=== PATIENT | female | born 1945 | race Caucasian/White ===

== ENCOUNTER 2017-08-30 16:21 | Inpatient (IN) | payer MEDICARE, MEDICAID ==
[~2017-08-30] VITALS: Ht 152.4 cm; Wt 66.3 kg
[2017-08-30 17:44] VITALS: BP 102/66
[2017-08-30 19:49] VITALS: BP 130/73
[2017-08-30] MEDS ORDERED: ONDANSETRON HCL 4 MG/2 ML VIAL IVP PRN (22:15)
[2017-08-30] MEDS ORDERED: ACETAMINOPHEN 325 MG TABLET PO PRN (22:15)
[2017-08-30] MEDS ORDERED: MAGNESIUM HYDROXIDE SUSPENSION 30 ML UDCUP PO PRN (22:15)
[2017-08-30] MEDS ORDERED: ZOLPIDEM TARTRATE 5 MG TABLET PO PRN (22:15)
[2017-08-30 23:25] VITALS: BP 129/79
[2017-08-30 23:26] LABS: BASOPHILS # (AUTO) 0.03 K/uL (0.00-0.20); BASOPHILS % (AUTO) 0.4 % (0.0-2.0); EOSINOPHILS # (AUTO) 0.18 K/uL (0.00-0.70); EOSINOPHILS % (AUTO) 2.11 % (1.0-6.0); HEMATOCRIT 39.6 % (36-46); HEMOGLOBIN 13.3 g/dL (12.0-16.0); LYMPHOCYTES # (AUTO) 2.6 K/uL (1.0-4.8); LYMPHOCYTES % (AUTO) 29.4 % (22.0-44.0); MEAN CORPUSCULAR HEMOGLOBIN 32.5 pg (26.0-34.0); MEAN CORPUSCULAR HGB CONC 33.6 G/dL (31.0-37.0); MEAN CORPUSCULAR VOLUME 97 fL (80-100); MONOCYTES # (AUTO) 0.6 K/uL (0.1-1.0); MONOCYTES % (AUTO) 6.7 % (2.0-9.0); NEUTROPHILS # (AUTO) 5.4 K/uL (1.8-7.7); NEUTROPHILS % (AUTO) 61.4 % (40.0-70.0); PLATELET COUNT (AUTO) 326 K/uL (150-450); RED CELL DISTRIBUTION WIDTH 13.5 % (11.5-14.5); WHITE BLOOD COUNT (AUTO) 8.8 K/uL (4.5-11.0)
[2017-08-30 23:50] LABS: ALANINE AMINOTRANSFERASE 21 U/L (12-78); ALBUMIN 3.3 g/dL (3.4-5.0); ANION GAP 5 mmol/L (8-16); ASPARTATE AMINOTRANSFERASE 14 U/L (15-37); BILIRUBIN,TOTAL 0.2 mg/dL (0.1-1.0); CARBON DIOXIDE 28 mmol/L (22-29); CHLORIDE 107 mmol/L (98-107); CHOL/HDL RATIO 3.4 (3.9-5.7); CREATININE 0.78 mg/dL (0.60-1.30); GLOMERULAR FILTR. RATE CALC > 60 mL/min (>60); POTASSIUM 3.9 mmol/L (3.5-5.1); SODIUM SERUM 140 mmol/L (136-145); THYROID STIMULATING HORMONE 1.17 uIU/mL (0.36-3.74); TOTAL PROTEIN, SERUM 6.6 g/dL (6.4-8.2); UREA NITROGEN, BLOOD 17 mg/dL (7-18)
[2017-08-31] MEDS: HEPARIN SODIUM,PORCINE 5,000 UNITS/ML VIAL SQ SCH ×4 (04:11→23:45)
[2017-08-31 04:15] VITALS: BP 128/75
[2017-08-31 07:34] VITALS: BP 126/57
[2017-08-31] MEDS: IPRATROPIUM BROMIDE 0.5 MG/2.5 ML NEB SOLUTION NEB SCH ×6 (08:07→20:41)
[2017-08-31] MEDS: DOCUSATE SODIUM 100 MG CAPSULE PO SCH ×2 (08:12→20:22)
[2017-08-31] MEDS ORDERED: DEXTROSE 5%-0.9% SODIUM CHL 1,000 ML IV SCH (10:30)
[2017-08-31 11:01] VITALS: BP 135/76
[2017-08-31] MEDS: RisperiDONE 0.5 MG TABLET PO SCH (13:24)
[2017-08-31] MEDS: LISINOPRIL 10 MG TABLET PO SCH (13:25)
[2017-08-31] MEDS: CefTRIAXone 1 GM/DEXTROSE 50 ML IV SCH (13:25)
[2017-08-31 15:29] VITALS: BP 133/69
[2017-08-31] MEDS: RASAGILINE MESYLATE 1 MG TABLET PO SCH (17:08)
[2017-08-31 19:29] VITALS: BP 148/83
[2017-08-31] MEDS: LevETIRAcetam 500 MG TABLET PO SCH (20:22)
[2017-08-31] MEDS: DEXTROSE 5%-0.9% SODIUM CHL 1,000 ML IV SCH (22:35)
[2017-08-31 23:21] VITALS: BP 142/74
[2017-09-01] MEDS: IPRATROPIUM BROMIDE 0.5 MG/2.5 ML NEB SOLUTION NEB SCH ×4 (02:16→21:10)
[2017-09-01 03:16] VITALS: BP 126/70
[2017-09-01 07:11] VITALS: BP 135/71
[2017-09-01] MEDS: LevETIRAcetam 500 MG TABLET PO SCH ×2 (09:11→20:37)
[2017-09-01] MEDS: CITALOPRAM HYDROBROMIDE 10 MG TABLET PO SCH (09:11)
[2017-09-01] MEDS: DONEPEZIL HCL 10 MG TABLET PO SCH (09:11)
[2017-09-01] MEDS: DOCUSATE SODIUM 100 MG CAPSULE PO SCH ×2 (09:11→20:39)
[2017-09-01] MEDS: RisperiDONE 0.5 MG TABLET PO SCH (09:11)
[2017-09-01] MEDS: AmLODIPine BESYLATE 5 MG TABLET PO SCH (09:11)
[2017-09-01] MEDS: HEPARIN SODIUM,PORCINE 5,000 UNITS/ML VIAL SQ SCH ×3 (09:11→23:22)
[2017-09-01] MEDS: LISINOPRIL 10 MG TABLET PO SCH (09:11)
[2017-09-01] MEDS: RASAGILINE MESYLATE 1 MG TABLET PO SCH (09:11)
[2017-09-01] MEDS: CefTRIAXone 1 GM/DEXTROSE 50 ML IV SCH (09:12)
[2017-09-01 11:10] VITALS: BP 145/69
[2017-09-01] MEDS: DEXTROSE 5%-0.9% SODIUM CHL 1,000 ML IV SCH (14:32)
[2017-09-01 16:10] VITALS: BP 139/88
[2017-09-01 19:14] VITALS: BP 140/73
[2017-09-01] MEDS ORDERED: 0.9% SODIUM CHLORIDE 5 ML NEB SOLUTION NEB ONE (20:23)
[2017-09-01 23:16] VITALS: BP 140/93
[2017-09-02] MEDS: IPRATROPIUM BROMIDE 0.5 MG/2.5 ML NEB SOLUTION NEB SCH ×4 (02:00→19:50)
[2017-09-02] MEDS ORDERED: 0.9% SODIUM CHLORIDE 5 ML NEB SOLUTION NEB ONE (03:34)
[2017-09-02 04:00] VITALS: BP 149/93
[2017-09-02] MEDS: DEXTROSE 5%-0.9% SODIUM CHL 1,000 ML IV SCH ×2 (06:15→16:54)
[2017-09-02 06:43] LABS: BASOPHILS % (AUTO) 0.5 % (0.0-2.0); EOSINOPHILS % (AUTO) 1.3 % (1.0-6.0); HEMATOCRIT 40.8 % (36-46); HEMOGLOBIN 14.1 g/dL (12.0-16.0); LYMPHOCYTES # (AUTO) 2.5 K/uL (1.0-4.8); LYMPHOCYTES % (AUTO) 30.3 % (22.0-44.0); MEAN CORPUSCULAR HEMOGLOBIN 33.6 pg (26.0-34.0); MEAN CORPUSCULAR HGB CONC 34.6 G/dL (31.0-37.0); MEAN CORPUSCULAR VOLUME 97 fL (80-100); MONOCYTES # (AUTO) 0.4 K/uL (0.1-1.0); MONOCYTES % (AUTO) 4.5 % (2.0-9.0); NEUTROPHILS # (AUTO) 5.1 K/uL (1.8-7.7); NEUTROPHILS % (AUTO) 63.4 % (40.0-70.0); PLATELET COUNT (AUTO) 316 K/uL (150-450); RED CELL DISTRIBUTION WIDTH 13.1 % (11.5-14.5); WHITE BLOOD COUNT (AUTO) 8.1 K/uL (4.5-11.0)
[2017-09-02 07:04] LABS: ANION GAP 9 mmol/L (8-16); CALCIUM, TOTAL 8.9 mg/dL (8.8-10.5); CARBON DIOXIDE 26 mmol/L (22-29); CHLORIDE 106 mmol/L (98-107); CREATININE 0.67 mg/dL (0.60-1.30); GLOMERULAR FILTR. RATE CALC > 60 mL/min (>60); POTASSIUM 3.8 mmol/L (3.5-5.1); SODIUM SERUM 141 mmol/L (136-145); UREA NITROGEN, BLOOD 7 mg/dL (7-18)
[2017-09-02 07:20] VITALS: BP 130/70
[2017-09-02] MEDS: HEPARIN SODIUM,PORCINE 5,000 UNITS/ML VIAL SQ SCH ×3 (08:28→23:49)
[2017-09-02] MEDS: CITALOPRAM HYDROBROMIDE 10 MG TABLET PO SCH (08:28)
[2017-09-02] MEDS: LevETIRAcetam 500 MG TABLET PO SCH ×2 (08:28→20:19)
[2017-09-02] MEDS: LISINOPRIL 10 MG TABLET PO SCH (08:29)
[2017-09-02] MEDS: DONEPEZIL HCL 10 MG TABLET PO SCH (08:29)
[2017-09-02] MEDS: RisperiDONE 0.5 MG TABLET PO SCH (08:29)
[2017-09-02] MEDS: DOCUSATE SODIUM 100 MG CAPSULE PO SCH ×2 (08:29→20:19)
[2017-09-02] MEDS: AmLODIPine BESYLATE 5 MG TABLET PO SCH (08:29)
[2017-09-02] MEDS: RASAGILINE MESYLATE 1 MG TABLET PO SCH (08:29)
[2017-09-02] MEDS: CefTRIAXone 1 GM/DEXTROSE 50 ML IV SCH (08:38)
[2017-09-02 11:29] VITALS: BP 134/71
[2017-09-02 15:44] VITALS: BP 142/69
[2017-09-02 19:24] VITALS: BP 155/98
[2017-09-03] VITALS (7 sets, daily range): BP systolic 130–154; BP diastolic 66–98
[2017-09-03] MEDS: IPRATROPIUM BROMIDE 0.5 MG/2.5 ML NEB SOLUTION NEB SCH ×4 (02:02→19:33)
[2017-09-03] MEDS: DEXTROSE 5%-0.9% SODIUM CHL 1,000 ML IV SCH ×2 (07:35→19:56)
[2017-09-03] MEDS: DONEPEZIL HCL 10 MG TABLET PO SCH (08:17)
[2017-09-03] MEDS: LISINOPRIL 10 MG TABLET PO SCH (08:17)
[2017-09-03] MEDS: AmLODIPine BESYLATE 5 MG TABLET PO SCH (08:17)
[2017-09-03] MEDS: HEPARIN SODIUM,PORCINE 5,000 UNITS/ML VIAL SQ SCH ×2 (08:17→16:24)
[2017-09-03] MEDS: RisperiDONE 0.5 MG TABLET PO SCH (08:17)
[2017-09-03] MEDS: CITALOPRAM HYDROBROMIDE 10 MG TABLET PO SCH (08:18)
[2017-09-03] MEDS: DOCUSATE SODIUM 100 MG CAPSULE PO SCH ×2 (08:19→20:46)
[2017-09-03] MEDS: LevETIRAcetam 500 MG TABLET PO SCH ×2 (08:19→20:46)
[2017-09-03] MEDS: RASAGILINE MESYLATE 1 MG TABLET PO SCH (08:20)
[2017-09-03] MEDS: CefTRIAXone 1 GM/DEXTROSE 50 ML IV SCH (10:03)
[2017-09-04] MEDS: HEPARIN SODIUM,PORCINE 5,000 UNITS/ML VIAL SQ SCH ×2 (00:15→08:11)
[2017-09-04] MEDS: IPRATROPIUM BROMIDE 0.5 MG/2.5 ML NEB SOLUTION NEB SCH ×2 (01:59→08:07)
[2017-09-04 04:00] VITALS: BP 125/86
[2017-09-04 05:51] LABS: BASOPHILS # (AUTO) 0.04 K/uL (0.00-0.20); BASOPHILS % (AUTO) 0.5 % (0.0-2.0); EOSINOPHILS # (AUTO) 0.13 K/uL (0.00-0.70); EOSINOPHILS % (AUTO) 1.51 % (1.0-6.0); HEMATOCRIT 39.7 % (36-46); HEMOGLOBIN 13.3 g/dL (12.0-16.0); LYMPHOCYTES # (AUTO) 2.4 K/uL (1.0-4.8); LYMPHOCYTES % (AUTO) 27.7 % (22.0-44.0); MEAN CORPUSCULAR HEMOGLOBIN 32.9 pg (26.0-34.0); MEAN CORPUSCULAR HGB CONC 33.6 G/dL (31.0-37.0); MEAN CORPUSCULAR VOLUME 98 fL (80-100); MONOCYTES # (AUTO) 0.5 K/uL (0.1-1.0); MONOCYTES % (AUTO) 5.8 % (2.0-9.0); NEUTROPHILS # (AUTO) 5.6 K/uL (1.8-7.7); NEUTROPHILS % (AUTO) 64.5 % (40.0-70.0); PLATELET COUNT (AUTO) 284 K/uL (150-450); RED BLOOD CELL COUNT(AUTO) 4.05 MIL/uL (4.00-5.20); RED CELL DISTRIBUTION WIDTH 13.2 % (11.5-14.5); WHITE BLOOD COUNT (AUTO) 8.6 K/uL (4.5-11.0)
[2017-09-04 06:22] LABS: ANION GAP 7 mmol/L (8-16); CALCIUM, TOTAL 8.7 mg/dL (8.8-10.5); CARBON DIOXIDE 28 mmol/L (22-29); CHLORIDE 108 mmol/L (98-107); CREATININE 0.63 mg/dL (0.60-1.30); GLOMERULAR FILTR. RATE CALC > 60 mL/min (>60); POTASSIUM 3.7 mmol/L (3.5-5.1); SODIUM SERUM 143 mmol/L (136-145); UREA NITROGEN, BLOOD 7 mg/dL (7-18)
[2017-09-04 07:03] VITALS: BP 155/88
[2017-09-04] MEDS: DONEPEZIL HCL 10 MG TABLET PO SCH (08:10)
[2017-09-04] MEDS: RASAGILINE MESYLATE 1 MG TABLET PO SCH (08:10)
[2017-09-04] MEDS: DOCUSATE SODIUM 100 MG CAPSULE PO SCH (08:10)
[2017-09-04] MEDS: LevETIRAcetam 500 MG TABLET PO SCH (08:10)
[2017-09-04] MEDS: LISINOPRIL 10 MG TABLET PO SCH (08:10)
[2017-09-04] MEDS: CITALOPRAM HYDROBROMIDE 10 MG TABLET PO SCH (08:10)
[2017-09-04] MEDS: RisperiDONE 0.5 MG TABLET PO SCH (08:11)
[2017-09-04] MEDS: AmLODIPine BESYLATE 5 MG TABLET PO SCH (08:11)
[2017-09-04] MEDS: DEXTROSE 5%-0.9% SODIUM CHL 1,000 ML IV SCH (08:21)
[2017-09-04] MEDS: CefTRIAXone 1 GM/DEXTROSE 50 ML IV SCH (09:57)
[2017-09-04] MEDS ORDERED: CITA10TA68 PO (10:34)
[2017-09-04] MEDS ORDERED: AMLO-511 PO (10:34)
[2017-09-04] MEDS ORDERED: DSS100 PO (10:34)
[2017-09-04] MEDS ORDERED: DONE10TA8 PO (10:35)
[2017-09-04] MEDS ORDERED: LISI-661 PO (10:36)
[2017-09-04] MEDS ORDERED: RASA1TAB PO (10:37)
[2017-09-04] MEDS ORDERED: LEVE500T53 PO (10:37)
[2017-09-04] MEDS ORDERED: RISP.5 PO (10:38)
[2017-09-04] MEDS ORDERED: LEVO500 PO (10:39)
[2017-09-04] MEDS ORDERED: ACET-784 PO (10:39)
[2017-09-04 11:01] VITALS: BP 140/79
== END 2017-09-04 13:30 | DRG 70 ==
LOC: 6N 17:00
PROVIDERS: ADMIT Internal Medicine; ATTEND Internal Medicine
DX: G93.41 Metabolic encephalopathy (principal); J18.9 Pneumonia, unspecified organism; G20 Parkinson's disease; F03.90 Unspecified dementia, unspecified severity, without behavioral disturbance, psychotic disturbance, mood disturbance, and anxiety; F32.9 Major depressive disorder, single episode, unspecified; I10 Essential (primary) hypertension; K21.9 Gastro-esophageal reflux disease without esophagitis; Z90.49 Acquired absence of other specified parts of digestive tract; Z82.49 Family history of ischemic heart disease and other diseases of the circulatory system; Z83.3 Family history of diabetes mellitus
CPT/HCPCS: 83735; 84443; 87070; 87086; 87147; 87205; 92526; 92610; 94640; 94799; 97110; 97116; 97162; 97166; 97530; 97535; J0696; J1644; J7042